=== PATIENT | female | born 1985 | race Asian ===

== ENCOUNTER → 2024-12-23 07:43 | Outpatient (REF) | payer OTHER, SELFPAY | LOC: PNTC 07:43 | PROVIDERS: ATTENDING PHYSICIAN Nurse Practitioner Family | DX: O36.80X0 Pregnancy with inconclusive fetal viability, not applicable or unspecified (principal) | CPT/HCPCS: 76801 ==

== ENCOUNTER → 2025-02-10 09:24 | Outpatient (REF) | payer OTHER, SELFPAY | LOC: PNTC 09:24 | PROVIDERS: ATTENDING PHYSICIAN Obstetrics & Gynecology | DX: Z36.0 Encounter for antenatal screening for chromosomal anomalies (principal); Z36.82 Encounter for antenatal screening for nuchal translucency | CPT/HCPCS: 76801; 76813 ==

== ENCOUNTER → 2025-03-31 13:30 | Outpatient (REF) | payer OTHER, SELFPAY | LOC: PNTC 13:30 | PROVIDERS: ATTENDING PHYSICIAN Obstetrics & Gynecology | DX: O09.529 Supervision of elderly multigravida, unspecified trimester (principal) | CPT/HCPCS: 76811; 76817 ==

== ENCOUNTER → 2025-05-20 10:46 | Outpatient (REF) | payer OTHER, SELFPAY | LOC: PNTC 10:46 | PROVIDERS: ATTENDING PHYSICIAN Obstetrics & Gynecology | DX: O09.519 Supervision of elderly primigravida, unspecified trimester (principal) | CPT/HCPCS: 76816 ==

== ENCOUNTER → 2025-06-29 13:25 | Outpatient (REF) | payer OTHER, SELFPAY | LOC: PNTC 13:25 | PROVIDERS: ATTENDING PHYSICIAN Obstetrics & Gynecology | DX: O09.529 Supervision of elderly multigravida, unspecified trimester (principal) | CPT/HCPCS: 76816 ==

== ENCOUNTER 2025-07-30 11:29 | Inpatient (IN) | payer OTHER, SELFPAY ==
[2025-07-30 12:27] VITALS: BP 147/105; BMI 28.9
[2025-07-30 12:55] LABS: Urine Character Clear (Clear)
[2025-07-30 12:56] LABS: Hematocrit 32.6 % (37.0-47.0); Hemoglobin 11.7 g/dL (12.0-16.0); Mean Corp Hgb Conc. 35.9 g/dL (33.0-37.0); Mean Corpuscular Volume 92.6 fL (81.0-99.0); Platelet Count 270 10^3/uL (130-400); Red Cell Dist. Width 12.3 % (11.5-14.5)
[2025-07-30 13:15] LABS: ALT (SGPT) 11 U/L (0-35); AST (SGOT) 17 U/L (14-36); Albumin 3.9 g/dl (3.5-5.0); Alkaline Phosphatase 112 U/L (38-126); Blood Urea Nitrogen 9 mg/dl (7-17); Calcium 8.8 mg/dl (8.4-10.2); Carbon Dioxide 18 mmol/L (22-30); Chloride 109 mmol/L (98-107); Estimated Creatinine Clearance > 125 ml/min; Glucose 78 mg/dl (70-99); Potassium 4.1 mmol/L (3.5-5.1); Sodium 134 mmol/L (135-145); Total Protein 7.0 g/dl (6.3-8.2); Urine Red Blood Cell 0-2 /HPF (0-2); eGFR > 60.00
[2025-07-30] MEDS: CYTOTEC 25 MICROGRAM VAG (17:20)
[2025-07-30] MEDS: TRANDATE 200 MG PO (18:07)
[2025-07-30] MEDS: ADALAT 10 MG PO (19:29)
[2025-07-30] MEDS: LR 1000 IV (20:07)
[2025-07-30] MEDS: MAGNESIUM SULFATE 100 IV (20:07)
[2025-07-30] MEDS: MAGNESIUM SULFATE 40 GRAM 1000 IV (20:32)
[2025-07-30] MEDS: CYTOTEC 50 MICROGRAM PO (21:22)
[2025-07-31] MEDS: CYTOTEC 50 MICROGRAM PO ×3 (01:26→09:45)
[2025-07-31] MEDS: TYLENOL 650 MG PO ×2 (01:26→07:38)
[2025-07-31 01:48] LABS: Magnesium 4.7 mg/dl (1.6-2.3)
[2025-07-31 05:50] LABS: Hematocrit 30.0 % (37.0-47.0); Hemoglobin 10.8 g/dL (12.0-16.0); Mean Corp Hgb Conc. 36.0 g/dL (33.0-37.0); Mean Corpuscular Volume 92.9 fL (81.0-99.0); Platelet Count 223 10^3/uL (130-400); Red Cell Dist. Width 11.9 % (11.5-14.5)
[2025-07-31 06:35] LABS: ALT (SGPT) < 10 U/L (0-35); AST (SGOT) 17 U/L (14-36); Albumin 3.3 g/dl (3.5-5.0); Alkaline Phosphatase 123 U/L (38-126); Blood Urea Nitrogen 6 mg/dl (7-17); Calcium 7.0 mg/dl (8.4-10.2); Carbon Dioxide 18 mmol/L (22-30); Chloride 110 mmol/L (98-107); Estimated Creatinine Clearance > 125 ml/min; Glucose 84 mg/dl (70-99); Potassium 3.8 mmol/L (3.5-5.1); Sodium 132 mmol/L (135-145); Total Protein 6.0 g/dl (6.3-8.2); eGFR > 60.00
[2025-07-31] MEDS: TRANDATE 200 MG PO ×2 (07:38→20:12)
[2025-07-31] MEDS: LR 1000 IV ×3 (09:46→23:05)
[2025-07-31] MEDS: PITOCIN 30 UNITS/NSS 500 ML IV (14:24)
[2025-07-31] MEDS: CYTOTEC PO (14:27)
[2025-07-31] MEDS: MAGNESIUM SULFATE 40 GRAM 1000 IV (16:03)
[2025-07-31] MEDS: STADOL 1 MG IV (19:04)
[2025-07-31 20:42] LABS: Magnesium 6.3 mg/dl (1.6-2.3)
[2025-08-01] MEDS: SUBLIMAZE 100 MCG EPIDURAL (00:27)
[2025-08-01] MEDS: FENTANYL/BUPIVACAINE 100 EPIDURAL (00:30)
[2025-08-01] MEDS: PENICILLIN 110 UNITS IV (00:49)
[2025-08-01] MEDS: PENICILLIN 55 UNITS IV ×2 (04:17→07:54)
[2025-08-01] MEDS: TRANDATE 200 MG PO ×2 (07:54→19:29)
[2025-08-01 08:26] LABS: Magnesium 5.3 mg/dl (1.6-2.3)
[2025-08-01] MEDS: TRANEXAMIC ACID 100 IV (09:30)
[2025-08-01] MEDS: PITOCIN 30 UNITS/NSS 500 ML IV (09:30)
[2025-08-01] MEDS: CYTOTEC 800 MCG RECTAL (09:45)
[2025-08-01] MEDS: TYLENOL 650 MG PO (13:42)
[2025-08-01] MEDS: MOTRIN 600 MG PO (19:16)
[2025-08-01] MEDS: COLACE 100 MG PO (19:29)
[2025-08-01] MEDS: LR 1000 IV (23:01)
[2025-08-02] MEDS: MAGNESIUM SULFATE 40 GRAM 1000 IV (00:57)
[2025-08-02] MEDS: CYTOTEC PO (01:00)
[2025-08-02 04:42] LABS: Hematocrit 28.6 % (37.0-47.0); Hemoglobin 9.9 g/dL (12.0-16.0)
[2025-08-02] MEDS: MOTRIN 600 MG PO (05:45)
[2025-08-02] MEDS: TRANDATE 200 MG PO ×2 (07:52→19:55)
[2025-08-02] MEDS: COLACE 100 MG PO ×2 (07:52→19:55)
[2025-08-02] MEDS: HYDROCORTISONE 2.5% OINTMENT 1 APPLIC TOPICAL (17:26)
[2025-08-03] MEDS: COLACE 100 MG PO (08:02)
[2025-08-03] MEDS: TRANDATE 200 MG PO (08:03)
[2025-08-03] MEDS: HYDROCORTISONE 2.5% OINTMENT 1 APPLIC TOPICAL (08:04)
[2025-08-03] MEDS: TRANDATE 100 MG PO (09:54)
[2025-08-04 15:38] LABS: Syphilis/T. pallidum Ab Reflex Negative (Negative)
== END 2025-08-03 17:34 | disposition home or self-care (01) | DRG 807 ==
LOC: LDRP 11:29
PROVIDERS: Obstetrics & Gynecology; ADMITTING PHYSICIAN Obstetrics & Gynecology
PROC: 3E0P7VZ Introduction of Hormone into Female Reproductive, Via Natural or Artificial Opening (ICD-10-PCS; 2025-07-30)
PROC: 3E033VJ Introduction of Other Hormone into Peripheral Vein, Percutaneous Approach (ICD-10-PCS; 2025-07-30)
PROC: 4A1HXCZ Monitoring of Products of Conception, Cardiac Rate, External Approach (ICD-10-PCS; 2025-07-31)
PROC: 10E0XZZ Delivery of Products of Conception, External Approach (ICD-10-PCS; 2025-08-01)
PROC: 0KQM0ZZ Repair Perineum Muscle, Open Approach (ICD-10-PCS; 2025-08-01)
DX: O14.14 Severe pre-eclampsia complicating childbirth (principal); Z37.0 Single live birth; O99.824 Streptococcus B carrier state complicating childbirth; Z3A.38 38 weeks gestation of pregnancy; O70.1 Second degree perineal laceration during delivery; Z82.49 Family history of ischemic heart disease and other diseases of the circulatory system
CPT/HCPCS: 36415; 80053; 81003; 81015; 82570; 83735; 84156; 85014; 85018; 85027; 86780; 86850; 86900; 86901; 88307

== ENCOUNTER 2025-08-04 15:29 | Observation (INO) | payer OTHER, SELFPAY ==
[2025-08-04 15:54] LABS: Hematocrit 26.4 % (37.0-47.0); Hemoglobin 9.2 g/dL (12.0-16.0); Mean Corp Hgb Conc. 34.8 g/dL (33.0-37.0); Mean Corpuscular Volume 96.0 fL (81.0-99.0); Nucleated Red Blood Cells % 0 %; Platelet Count 298 10^3/uL (130-400); Red Cell Dist. Width 12.2 % (11.5-14.5)
[2025-08-04 16:08] LABS: Urine Character Slightly Cloudy (Clear)
[2025-08-04 16:12] LABS: ALT (SGPT) 17 U/L (0-35); AST (SGOT) 28 U/L (14-36); Albumin 3.5 g/dl (3.5-5.0); Alkaline Phosphatase 70 U/L (38-126); Blood Urea Nitrogen 13 mg/dl (7-17); Calcium 9.0 mg/dl (8.4-10.2); Carbon Dioxide 20 mmol/L (22-30); Chloride 110 mmol/L (98-107); Glucose 89 mg/dl (70-99); Potassium 4.6 mmol/L (3.5-5.1); Sodium 136 mmol/L (135-145); Total Protein 6.3 g/dl (6.3-8.2); Uric Acid 3.7 mg/dl (2.5-6.2); eGFR > 60.00
[2025-08-04 16:13] VITALS: BMI 28.9
[2025-08-04 16:16] VITALS: BP 171/77
[2025-08-04 16:25] LABS: Urine Red Blood Cell 50-60 /HPF (0-2)
[2025-08-04] MEDS: ADALAT 10 MG PO (16:59)
[2025-08-04] MEDS: TRANDATE 300 MG PO (20:59)
[2025-08-05 05:15] LABS: Hematocrit 25.8 % (37.0-47.0); Hemoglobin 9.0 g/dL (12.0-16.0); Mean Corp Hgb Conc. 34.9 g/dL (33.0-37.0); Mean Corpuscular Volume 95.6 fL (81.0-99.0); Platelet Count 285 10^3/uL (130-400); Red Cell Dist. Width 12.1 % (11.5-14.5)
[2025-08-05 05:37] LABS: ALT (SGPT) 14 U/L (0-35); AST (SGOT) 19 U/L (14-36); Albumin 3.1 g/dl (3.5-5.0); Alkaline Phosphatase 69 U/L (38-126); Blood Urea Nitrogen 11 mg/dl (7-17); Calcium 8.7 mg/dl (8.4-10.2); Carbon Dioxide 22 mmol/L (22-30); Chloride 109 mmol/L (98-107); Estimated Creatinine Clearance > 125 ml/min; Glucose 81 mg/dl (70-99); Potassium 4.1 mmol/L (3.5-5.1); Sodium 137 mmol/L (135-145); Total Protein 5.8 g/dl (6.3-8.2); eGFR > 60.00
[2025-08-05] MEDS: TRANDATE 300 MG PO (07:46)
== END 2025-08-05 10:23 | disposition home or self-care (01) ==
LOC: LDRP 15:29
PROVIDERS: ADMITTING PHYSICIAN Obstetrics & Gynecology
DX: O14.15 Severe pre-eclampsia, complicating the puerperium (principal); I15.8 Other secondary hypertension; T44.8X6A Underdosing of centrally-acting and adrenergic-neuron-blocking agents, initial encounter; Z91.138 Patient's unintentional underdosing of medication regimen for other reason; Y92.009 Unspecified place in unspecified non-institutional (private) residence as the place of occurrence of the external cause; Z82.49 Family history of ischemic heart disease and other diseases of the circulatory system
CPT/HCPCS: 80053; 81003; 81015; 82570; 84156; 84550; 85025; 85027